=== PATIENT | male | born 1930 | race Caucasian/White ===

== ENCOUNTER 2018-07-21 19:13 | Inpatient (IN) | payer MEDICARE, OTHER ==
[~2018-07-21] VITALS: Ht 160 cm; Wt 73.5 kg
[2018-07-21] VITALS (13 sets, daily range): BP systolic 80–102; BP diastolic 13–54; PULSE 88–98; RESP 22–33; Ht 160 cm; Wt 73.5 kg
[2018-07-21] MEDS ORDERED: VANCOMYCIN IV PER PHARMACY XX SCH (22:30)
[2018-07-21] MEDS ORDERED: ACETAMINOPHEN 650MG/20.3ML CUP GTB PRN (22:30)
[2018-07-21] MEDS ORDERED: NACL 3% FOR INHALATION 15 ML NEBU NEB ONE (22:30)
[2018-07-21] MEDS: SOD CHLORIDE 0.9% 1,000 ML IV SCH (23:12)
[2018-07-22] VITALS (83 sets, daily range): BP systolic 52–192; BP diastolic 18–107; PULSE 0–163; RESP 18–40
[2018-07-22] MEDS ORDERED: PHENYLephrine 40 MG in DEXTROSE 5% 246 ML IV SCH ×2
[2018-07-22] MEDS ORDERED: NORepinephrine 8MG/250 ML (PMX 250 ML IV SCH
[2018-07-22] MEDS ORDERED: GLUCAGON 1 MG INJ IM PRN (00:30)
[2018-07-22] MEDS ORDERED: DEXTROSE 50% 50 ML SYRINGE IV PRN ×2 (00:30)
[2018-07-22] MEDS ORDERED: GLUCOSE GEL 15 GRAM TUBE BUCCAL PRN (00:30)
[2018-07-22] MEDS ORDERED: GLUCOSE GEL 15 GRAM TUBE PO PRN ×2 (00:30)
[2018-07-22] MEDS ORDERED: VANCOMYCIN HCL 1.5 GM in SOD CHLORIDE 0.9% 250 ML IVPB ONE (01:00)
[2018-07-22] MEDS: INSULIN ASPART [NOVOLOG] 3 ML PEN SC SCH ×3 (06:00→17:43)
[2018-07-22] MEDS ORDERED: SOD CHLORIDE 0.9% 500 ML IV ONE (06:00)
[2018-07-22] MEDS: ERYTHROMYCIN BASE (DR) 250 MG CAP PO SCH ×4 (06:00→16:04)
[2018-07-22] MEDS ORDERED: FAMOTIDINE 20 MG TAB NGT SCH (09:00)
[2018-07-22] MEDS ORDERED: BALSAM PERU/CASTOR OIL 60 GM TUBE TOP SCH (09:00)
[2018-07-22] MEDS ORDERED: GLYCOPYRROLATE 1 MG TAB PEG SCH (09:00)
[2018-07-22] MEDS ORDERED: POLYETHYLENE GLYCOL 17 GM PACKET GTB SCH (09:00)
[2018-07-22] MEDS: CARBIDOPA/LEVODOPA (25/100) TAB PEG SCH ×3 (09:00→16:04)
[2018-07-22] MEDS ORDERED: NORepinephrine 32 MG in DEXTROSE 5% 218 ML IV SCH (09:00)
[2018-07-22] MEDS ORDERED: ATORVASTATIN 20 MG TAB GTB SCH (09:00)
[2018-07-22] MEDS ORDERED: CEFEPIME 1GM/50 ML (PMX) 50 ML IVPB SCH (09:00)
[2018-07-22] MEDS ORDERED: predniSONE 20 MG TAB GTB SCH (09:00)
[2018-07-22] MEDS ORDERED: METOPROLOL 25 MG TAB GTB SCH (09:00)
[2018-07-22] MEDS: PHENYLephrine 80 MG in DEXTROSE 5% 242 ML IV SCH ×2 (09:53→16:01)
[2018-07-22] MEDS: CHLORHEXIDINE GLUCONATE 15 ML UD CUP MT SCH ×2 (10:07→12:48)
--- NOTE | 2018-07-22 10:37 | CONS ---
Assessment/Plan Cardiology NYHA: IV Heart Failure Type: Acute on Chronic Assessment/Plan Assessment/Plan (Daily) Assessment: 1) Septic shock 2) AFIb w RVR likely in context of comorbidities 3) CAD 4) CABG 5) Chronic respiratory failure 6) CRI 7) Moderate aortic valve stenosis Plan: Continue current two pressors Ventilator dc beta leonardo poor prognosis Consultation Date/Type/Reason Admit Date/Time Jul 21, 2018 at 20:29 Initial Consult Date Type of Consult Cardiology Date/Time of Note DATE: 07/22/18 TIME: 10:31 24 HR Interval Summary Free Text/Dictation in ICU, agonal breathing, cyanotic, on pressors, hypotensive Subjective hx not possible: pt non-verbal, pt critical Exam/Review of Systems Vital Signs Vitals Vital Signs Date Temp Pulse Resp B/P (MAP) Pulse Ox O2 O2 Flow FiO2 Time Delivery Rate 07/22/18 163 09:39 07/22/18 34 78/36 (50) 93 08:15 07/22/18 97.2 Trach 10.0 08:00 Collar 07/22/18 98 07:38 Intake and Output 07/21/18 07/21/18 07/22/18 1515:00 23:00 07:00 IntakeIntake Total 602.49 ml OutputOutput Total 2800 ml BalanceBalance -2197.51 ml Exam Constitutional: non-verbal, distress Head: normocephalic, atraumatic ENMT: other (trach) Neck: jvd Respiratory: diminished breath sounds Cardiovascular: irregular rhythm Gastrointestinal: soft Musculoskeletal: muscle weakness Extremities: cyanosis Labs Result Diagram: 07/22/18 0451 07/22/18 0451 Results 24hrs Laboratory Tests Test 07/22/18 01:30 07/22/18 02:26 07/22/18 04:51 07/22/18 06:10 Urine Color FIDEL Urine Clarity TURBID A Urine pH 5.0 Urine Specific 1.020 [place] Urine Ketones TRACE A Urine Nitrite NEGATIVE Urine Bilirubin NEGATIVE Urine Urobilinogen NEGATIVE Urine Leukocyte NEGATIVE Esterase Urine Microscopic 181 H RBC Urine Microscopic 47 H WBC Urine Squamous FEW Epithelial Cells Urine Bacteria FEW A Urine Mucus FEW A Urine Hemoglobin 3+ H Urine Glucose NEGATIVE Urine Total 2+ H Protein Blood Gas Specimen Blood arterial Source Arterial Blood 07/22/2018 3:05:20 Date Drawn AM Arterial Blood pH 7.340 L (Temp corrected) Arterial Blood 38.4 pCO2 (Temp correct) Arterial Blood pO2 73.0 L (Temp corrected) Arterial Blood 20.3 L HCO3 Arterial Blood -5.0 L Base Excess Arterial Blood 91.8 L Oxygen Saturation Cricket Test N/A Arterial Blood Gas Right Brachial Puncture Site Arterial 0.3 Blood Carboxyhemog lobin Arterial Blood 0.3 Methemoglobin Blood Gas A-a O2 529.3 H Differential Oxyhemoglobin 91.2 L Percent Blood Gas 37.0 Temperature Blood Gas Actual 32 Respiration Rate Blood Gas Modality TRACH COLLAR FiO2 90.0 Blood Gas Notified MG Whom Blood Gas Notified 07/22/2018 3:17:33 Time AM White Blood Count 24.2 #H Red Blood Count 3.38 L Hemoglobin 9.3 L Hematocrit 30.3 L Mean Corpuscular 89.6 Volume Mean Corpuscular 27.5 L Hemoglobin Mean Corpuscular 30.7 L Hemoglobin Concent Red Cell 16.4 H Distribution Width Platelet Count 384 Mean Platelet 10.2 Volume Immature 5.800 H Granulocytes % Neutrophils % Segmented 51 Neutrophils % (Manual) Band Neutrophils % 40 H (Manual) Lymphocytes % 2 L (Manual) Monocytes % 4 (Manual) Eosinophils % Metamyelocytes % 3 H (manual) Nucleated Red 0.0 Blood Cells % Immature 1.410 H Granulocytes # Neutrophils # Neutrophils # 14.7 H (Manual) Band Neutrophils # 9.6 H Lymphocytes 0.4 L (Manual) Monocytes # 0.9 (Manual) Eosinophils # Metamyelocytes # 0.7 H Dohle Bodies 1+ Platelet Estimate NORMAL Polychromasia 1+ Poikilocytosis 2+ Anisocytosis 1+ Ovalocytes 1+ Sodium Level 134 L Potassium Level 4.3 Chloride Level 97 Carbon Dioxide 23 Level Anion Gap 14 H Blood Urea 129 H Nitrogen Creatinine 2.42 H Est Glomerular Filtrat Rate mL/min Glucose Level 70 # Calcium Level 7.5 L Total Bilirubin 0.1 L Direct Bilirubin 0.00 Indirect Bilirubin 0.1 Aspartate Amino 126 H Transf (AST/SGOT) Alanine 29 Aminotransferase ( ALT/SGPT) Alkaline 112 Phosphatase Total Protein 5.9 L Albumin 2.4 L Globulin 3.50 H Albumin/Globulin 0.68 Ratio Bedside Glucose 65 L Test 07/22/18 07:06 Bedside Glucose 99 Medications Medications Current Medications Acetaminophen (Tylenol Liquid) 650 mg Q4H PRN GTB MILD PAIN(1-3)OR ELEVATED TEMP; Start 07/21/18 at 22:30 Atorvastatin Calcium (Lipitor) 20 mg DAILY GTB ; Start 07/22/18 at 09:00 Cefepime HCl 50 ml @ 100 mls/hr Q12 IVPB Last administered on 07/22/18at 10:06; Admin Dose 100 MLS/HR; Start 07/22/18 at 09:00 Chlorhexidine Gluconate (Peridex) 15 ml TID MT Last administered on 07/22/18at 10:07; Admin Dose 15 ML; Start 07/22/18 at 09:00 Erythromycin (Erythromycin) 250 mg Q6 PO ; Start 07/22/18 at 00:00 Simethicone (Mylicon) 80 mg TID GTB ; Start 07/22/18 at 09:00 Vancomycin HCl (Vanco Iv Per Pharmacy) VANCOMYCIN PER PHARMACY PER PROTOCOL XX ; Start 07/21/18 at 22:30 Sodium Chloride 1,000 ml @ 70 mls/hr [id number] IV Last administered on 07/21/18at 23:12; Admin Dose 70 MLS/HR; Start 07/21/18 at 22:30 Famotidine (Pepcid) 20 mg DAILY NGT ; Start 07/22/18 at 09:00 Glycopyrrolate (Robinul) 1 mg BID PEG ; Start 07/22/18 at 09:00 Carbidopa/Levodopa (Sinemet (25/ 100)) 1 tab QID PEG ; Start 07/22/18 at 09:00 Metoprolol Tartrate (Lopressor) 25 mg BID GTB ; Start 07/22/18 at 09:00 Polyethylene Glycol (Miralax) 17 gm DAILY GTB ; Start 07/22/18 at 09:00 Prednisone (Prednisone) 20 mg BID GTB ; Start 07/22/18 at 09:00; Stop 07/25/18 at 21:00 Insulin Aspart (Novolog Insulin Pen) NOVOLOG *MILD* ALGORI... Q6 SC ; Start 07/22/18 at 06:00 Miscellaneous Information 1 ea NOTE XX ; Start 07/22/18 at 00:30 Glucose (Glutose) 15 gm Q15M PRN PO DECREASED GLUCOSE; Start 07/22/18 at 00:30 Glucose (Glutose) 22.5 gm Q15M PRN PO DECREASED GLUCOSE; Start 07/22/18 at 00:30 Dextrose (D50w Syringe) 25 ml Q15M PRN IV DECREASED GLUCOSE Last administered on 07/22/18at 06:23; Admin Dose 25 ML; Start 07/22/18 at 00:30 Dextrose (D50w Syringe) 50 ml Q15M PRN IV DECREASED GLUCOSE; Start 07/22/18 at 00:30 Glucagon (Glucagen) 1 mg Q15M PRN IM DECREASED GLUCOSE; Start 07/22/18 at 00:30 Glucose (Glutose) 15 gm Q15M PRN BUCCAL DECREASED GLUCOSE; Start 07/22/18 at 00:30 Norepinephrine 32 mg/Dextrose 250 ml @ 0.47 mls/hr TITRATE IV Last administered on 07/22/18at 10:26; Admin Dose 4.69 MLS/HR; Start 07/22/18 at 09:00 Phenylephrine HCl 80 mg/Dextrose 250 ml @ 18.75 mls/ hr TITRATE IV Last administered on 07/22/18at 09:53; Admin Dose 30 MLS/HR; Start 07/22/18 at 09:00 LUDMILA RADER MD Jul 22, 2018 10:37
--- NOTE | 2018-07-22 11:07 | CONS ---
Assessment/Plan Assessment/Plan Assessment/Plan (Daily) IMP: 1. Refractory Septic Shock 2/2 mesenteric ischemia with evidence of mesenteric and portal venous gas 2. Chronic Resp Failure--s/p trach 3. Chronic Encephalopathy 4. LARON on CKD 5. Bowel ischemia 6. Multifocal pneumonia 7. s/p CVA 8. s/p hemicolectomy RECS: 1. IVF's with LR--> needs more fluids 2. Follow lactate clearance 3. Broad spectrum abx 4. Patient poor candidate for surgical intervention 5. Vasopressors to MAP > 65 mm Hg 6. Hydrocortisone 50 mg IV Q 6 7. Needs central access 8. Agree with chemical code--would strongly consider transition to comfort measures given overall poor prognosis. Consultation Date/Type/Reason Admit Date/Time Jul 21, 2018 at 20:29 Date of Consultation: Jul 22, 2018 Type of Consult Pulm/CCM Date/Time of Note DATE: 07/22/18 TIME: 10:55 Hx of Present Illness Briefly, this is an 87-year-old man with a history of CAD, HTN, HL, DM, CABG, PD , s/p recent prolonged hospitalization starting in early May 2018 where he was admitted to [facility] with a CVA and AMS. His course was complicated by ischemic colitis, s/p hemicolectomy and colostomy, respiratory failure s/p trach and vent dependence as well as renal failure requiring HD. He was subsequently sent to [place] for further management. Overnight, he was transferred to the ICU for severe septic shock requiring pressors, found to have ischemic bowel on CT as evidenced by pneumatosis and mesenteric and portal venous gas. Subjective hx not possible: pt non-verbal Past Medical History Medical History: congestive heart failure, coronary artery disease, diabetes, hypertension, renal disease Medications Current Medications Acetaminophen (Tylenol Liquid) 650 mg Q4H PRN GTB MILD PAIN(1-3)OR ELEVATED TEMP; Start 07/21/18 at 22:30 Atorvastatin Calcium (Lipitor) 20 mg DAILY GTB ; Start 07/22/18 at 09:00 Chlorhexidine Gluconate (Peridex) 15 ml TID MT Last administered on 07/22/18at 10:07; Admin Dose 15 ML; Start 07/22/18 at 09:00 Erythromycin (Erythromycin) 250 mg Q6 PO ; Start 07/22/18 at 00:00 Simethicone (Mylicon) 80 mg TID GTB ; Start 07/22/18 at 09:00 Vancomycin HCl (Vanco Iv Per Pharmacy) VANCOMYCIN PER PHARMACY PER PROTOCOL XX ; Start 07/21/18 at 22:30 Sodium Chloride 1,000 ml @ 70 mls/hr [id number] IV Last administered on 07/21/18at 23:12; Admin Dose 70 MLS/HR; Start 07/21/18 at 22:30 Famotidine (Pepcid) 20 mg DAILY NGT ; Start 07/22/18 at 09:00 Glycopyrrolate (Robinul) 1 mg BID PEG ; Start 07/22/18 at 09:00 Carbidopa/Levodopa (Sinemet (25/ 100)) 1 tab QID PEG ; Start 07/22/18 at 09:00 Polyethylene Glycol (Miralax) 17 gm DAILY GTB ; Start 07/22/18 at 09:00 Prednisone (Prednisone) 20 mg BID GTB ; Start 07/22/18 at 09:00; Stop 07/25/18 at 21:00 Insulin Aspart (Novolog Insulin Pen) NOVOLOG *MILD* ALGORI... Q6 SC ; Start 07/22/18 at 06:00 Miscellaneous Information 1 ea NOTE XX ; Start 07/22/18 at 00:30 Glucose (Glutose) 15 gm Q15M PRN PO DECREASED GLUCOSE; Start 07/22/18 at 00:30 Glucose (Glutose) 22.5 gm Q15M PRN PO DECREASED GLUCOSE; Start 07/22/18 at 00:30 Dextrose (D50w Syringe) 25 ml Q15M PRN IV DECREASED GLUCOSE Last administered on 07/22/18at 06:23; Admin Dose 25 ML; Start 07/22/18 at 00:30 Dextrose (D50w Syringe) 50 ml Q15M PRN IV DECREASED GLUCOSE; Start 07/22/18 at 00:30 Glucagon (Glucagen) 1 mg Q15M PRN IM DECREASED GLUCOSE; Start 07/22/18 at 00:30 Glucose (Glutose) 15 gm Q15M PRN BUCCAL DECREASED GLUCOSE; Start 07/22/18 at 00:30 Norepinephrine 32 mg/Dextrose 250 ml @ 0.47 mls/hr TITRATE IV Last administered on 07/22/18at 10:26; Admin Dose 4.69 MLS/HR; Start 07/22/18 at 09:00 Phenylephrine HCl 80 mg/Dextrose 250 ml @ 18.75 mls/ hr TITRATE IV Last administered on 07/22/18at 09:53; Admin Dose 30 MLS/HR; Start 07/22/18 at 09:00 Cefepime HCl 50 ml @ 100 mls/hr DAILY IVPB ; Start 07/23/18 at 09:00 Allergies: Coded Allergies: Penicillins (Unverified Allergy, Unknown, 06/22/18) diphenhydramine (Verified Allergy, Unknown, 06/22/18) Past Surgical History Past Surgical Hx: coronary bypass surgery Family History Significant Family History: no pertinent family hx Social History Alcohol Use: none Drug Use: none Exam/Review of Systems Exam Vitals Vital Signs Date Temp Pulse Resp B/P (MAP) Pulse Ox O2 O2 Flow FiO2 Time Delivery Rate 07/22/18 100 10:30 07/22/18 163 09:39 07/22/18 34 78/36 (50) 93 08:15 07/22/18 97.2 Trach 10.0 08:00 Collar Intake and Output 07/21/18 07/21/18 07/22/18 1515:00 23:00 07:00 IntakeIntake Total 602.49 ml OutputOutput Total 2800 ml BalanceBalance -2197.51 ml Constitutional: non-verbal Head: normocephalic, atraumatic Eyes: nl conjunctiva ENMT: nl external ears & nose, nl lips & teeth Neck: supple, non-tender Respiratory: crackles/rales, labored breathing Cardiovascular: irregular rhythm, systolic murmur Gastrointestinal: distended, firm Musculoskeletal: nl extremities to inspection Extremities: normal pulses Neurological: lethargic Results Result Diagram: 07/22/18 0451 07/22/18 0451 Results 24hrs Laboratory Tests Test 07/22/18 01:30 07/22/18 02:26 07/22/18 04:51 07/22/18 06:10 Urine Color FIDEL Urine Clarity TURBID A Urine pH 5.0 Urine Specific 1.020 [place] Urine Ketones TRACE A Urine Nitrite NEGATIVE Urine Bilirubin NEGATIVE Urine Urobilinogen NEGATIVE Urine Leukocyte NEGATIVE Esterase Urine Microscopic 181 H RBC Urine Microscopic 47 H WBC Urine Squamous FEW Epithelial Cells Urine Bacteria FEW A Urine Mucus FEW A Urine Hemoglobin 3+ H Urine Glucose NEGATIVE Urine Total 2+ H Protein Blood Gas Specimen Blood arterial Source Arterial Blood 07/22/2018 3:05:20 Date Drawn AM Arterial Blood pH 7.340 L (Temp corrected) Arterial Blood 38.4 pCO2 (Temp correct) Arterial Blood pO2 73.0 L (Temp corrected) Arterial Blood 20.3 L HCO3 Arterial Blood -5.0 L Base Excess Arterial Blood 91.8 L Oxygen Saturation Cricket Test N/A Arterial Blood Gas Right Brachial Puncture Site Arterial 0.3 Blood Carboxyhemog lobin Arterial Blood 0.3 Methemoglobin Blood Gas A-a O2 529.3 H Differential Oxyhemoglobin 91.2 L Percent Blood Gas 37.0 Temperature Blood Gas Actual 32 Respiration Rate Blood Gas Modality TRACH COLLAR FiO2 90.0 Blood Gas Notified MG Whom Blood Gas Notified 07/22/2018 3:17:33 Time AM White Blood Count 24.2 #H Red Blood Count 3.38 L Hemoglobin 9.3 L Hematocrit 30.3 L Mean Corpuscular 89.6 Volume Mean Corpuscular 27.5 L Hemoglobin Mean Corpuscular 30.7 L Hemoglobin Concent Red Cell 16.4 H Distribution Width Platelet Count 384 Mean Platelet 10.2 Volume Immature 5.800 H Granulocytes % Neutrophils % Segmented 51 Neutrophils % (Manual) Band Neutrophils % 40 H (Manual) Lymphocytes % 2 L (Manual) Monocytes % 4 (Manual) Eosinophils % Metamyelocytes % 3 H (manual) Nucleated Red 0.0 Blood Cells % Immature 1.410 H Granulocytes # Neutrophils # Neutrophils # 14.7 H (Manual) Band Neutrophils # 9.6 H Lymphocytes 0.4 L (Manual) Monocytes # 0.9 (Manual) Eosinophils # Metamyelocytes # 0.7 H Dohle Bodies 1+ Platelet Estimate NORMAL Polychromasia 1+ Poikilocytosis 2+ Anisocytosis 1+ Ovalocytes 1+ Sodium Level 134 L Potassium Level 4.3 Chloride Level 97 Carbon Dioxide 23 Level Anion Gap 14 H Blood Urea 129 H Nitrogen Creatinine 2.42 H Est Glomerular Filtrat Rate mL/min Glucose Level 70 # Calcium Level 7.5 L Total Bilirubin 0.1 L Direct Bilirubin 0.00 Indirect Bilirubin 0.1 Aspartate Amino 126 H Transf (AST/SGOT) Alanine 29 Aminotransferase ( ALT/SGPT) Alkaline 112 Phosphatase Total Protein 5.9 L Albumin 2.4 L Globulin 3.50 H Albumin/Globulin 0.68 Ratio Bedside Glucose 65 L Test 07/22/18 07:06 Bedside Glucose 99 Medications Medication Current Medications Acetaminophen (Tylenol Liquid) 650 mg Q4H PRN GTB MILD PAIN(1-3)OR ELEVATED TEMP; Start 07/21/18 at 22:30 Atorvastatin Calcium (Lipitor) 20 mg DAILY GTB ; Start 07/22/18 at 09:00 Chlorhexidine Gluconate (Peridex) 15 ml TID MT Last administered on 07/22/18at 10:07; Admin Dose 15 ML; Start 07/22/18 at 09:00 Erythromycin (Erythromycin) 250 mg Q6 PO ; Start 07/22/18 at 00:00 Simethicone (Mylicon) 80 mg TID GTB ; Start 07/22/18 at 09:00 Vancomycin HCl (Vanco Iv Per Pharmacy) VANCOMYCIN PER PHARMACY PER PROTOCOL XX ; Start 07/21/18 at 22:30 Sodium Chloride 1,000 ml @ 70 mls/hr [id number] IV Last administered on 07/21/18at 23:12; Admin Dose 70 MLS/HR; Start 07/21/18 at 22:30 Famotidine (Pepcid) 20 mg DAILY NGT ; Start 07/22/18 at 09:00 Glycopyrrolate (Robinul) 1 mg BID PEG ; Start 07/22/18 at 09:00 Carbidopa/Levodopa (Sinemet (25/ 100)) 1 tab QID PEG ; Start 07/22/18 at 09:00 Polyethylene Glycol (Miralax) 17 gm DAILY GTB ; Start 07/22/18 at 09:00 Prednisone (Prednisone) 20 mg BID GTB ; Start 07/22/18 at 09:00; Stop 07/25/18 at 21:00 Insulin Aspart (Novolog Insulin Pen) NOVOLOG *MILD* ALGORI... Q6 SC ; Start 07/22/18 at 06:00 Miscellaneous Information 1 ea NOTE XX ; Start 07/22/18 at 00:30 Glucose (Glutose) 15 gm Q15M PRN PO DECREASED GLUCOSE; Start 07/22/18 at 00:30 Glucose (Glutose) 22.5 gm Q15M PRN PO DECREASED GLUCOSE; Start 07/22/18 at 00:30 Dextrose (D50w Syringe) 25 ml Q15M PRN IV DECREASED GLUCOSE Last administered on 07/22/18at 06:23; Admin Dose 25 ML; Start 07/22/18 at 00:30 Dextrose (D50w Syringe) 50 ml Q15M PRN IV DECREASED GLUCOSE; Start 07/22/18 at 00:30 Glucagon (Glucagen) 1 mg Q15M PRN IM DECREASED GLUCOSE; Start 07/22/18 at 00:30 Glucose (Glutose) 15 gm Q15M PRN BUCCAL DECREASED GLUCOSE; Start 07/22/18 at 00:30 Norepinephrine 32 mg/Dextrose 250 ml @ 0.47 mls/hr TITRATE IV Last administered on 07/22/18at 10:26; Admin Dose 4.69 MLS/HR; Start 07/22/18 at 09:00 Phenylephrine HCl 80 mg/Dextrose 250 ml @ 18.75 mls/ hr TITRATE IV Last administered on 07/22/18at 09:53; Admin Dose 30 MLS/HR; Start 07/22/18 at 09:00 Cefepime HCl 50 ml @ 100 mls/hr DAILY IVPB ; Start 07/23/18 at 09:00 ANGELA SHEETS MD Jul 22, 2018 11:07
[2018-07-22] MEDS ORDERED: LACTATED RINGER'S 1,000 ML IV ONE (11:30)
--- NOTE | 2018-07-22 11:32 | PRO ---
Date/Time of Note Date/Time of Note DATE: 07/22/18 TIME: 11:30 Femoral CV Placement PROCEDURE NOTE PROCEDURE: right subclavian central venous catheter insertion INDICATION: Need for intravenous access due to septic shock PROCEDURE INTERNET PROGRAMMER: Du CONSENT: Consent was implied due to the emergent nature of the procedure. PROCEDURE SUMMARY: The patient was prepped and draped in the usual sterile manner. 1% lidocaine was used to numb the region. The finder needle was used to locate the right subc lavian vein. A triple lumen 8.5 [place] 20 cm catheter was inserted using the Seldinger technique and the guidewire was removed. All ports aspirate and flushed without difficulty. The patient tolerated the procedure well without any immediate complications. The line was sutured into place and the area was cleaned and Tegaderm applied. ESTIMATED BLOOD LOSS: 1-2 ml ANGELA SHEEST MD Jul 22, 2018 11:32
[2018-07-22] MEDS: LACTATED RINGER'S 1,000 ML IV SCH ×2 (11:40→17:44)
--- NOTE | 2018-07-22 11:42 | HP ---
Date/Time of Note Date/Time of Note DATE: 07/22/18 TIME: 11:39 Assessment/Plan VTE Prophylaxis Pharmacological prophylaxis: LMWH Lines/Catheters IV Catheter Type (from Nrsg): Central Line Central line still needed: Yes Urinary Cath still in place: Yes Reason Cath still needed: skin wounds contaminated by urine Assessment/Plan Hospital Course 1) bowel ischemia - consult surgery - poor candidate for surgical intervention 2) respiratory failure - on ventilator 3) code status - patient is chemical code only at this point Result Diagram: 07/22/18 0451 07/22/18 0451 Results 24hrs Laboratory Tests Test 07/22/18 01:30 07/22/18 02:26 07/22/18 04:51 07/22/18 06:10 Urine Color FIDEL Urine Clarity TURBID A Urine pH 5.0 Urine Specific 1.020 [place] Urine Ketones TRACE A Urine Nitrite NEGATIVE Urine Bilirubin NEGATIVE Urine Urobilinogen NEGATIVE Urine Leukocyte NEGATIVE Esterase Urine Microscopic 181 H RBC Urine Microscopic 47 H WBC Urine Squamous FEW Epithelial Cells Urine Bacteria FEW A Urine Mucus FEW A Urine Hemoglobin 3+ H Urine Glucose NEGATIVE Urine Total 2+ H Protein Blood Gas Specimen Blood arterial Source Arterial Blood 07/22/2018 3:05:20 Date Drawn AM Arterial Blood pH 7.340 L (Temp corrected) Arterial Blood 38.4 pCO2 (Temp correct) Arterial Blood pO2 73.0 L (Temp corrected) Arterial Blood 20.3 L HCO3 Arterial Blood -5.0 L Base Excess Arterial Blood 91.8 L Oxygen Saturation Cricket Test N/A Arterial Blood Gas Right Brachial Puncture Site Arterial 0.3 Blood Carboxyhemog lobin Arterial Blood 0.3 Methemoglobin Blood Gas A-a O2 529.3 H Differential Oxyhemoglobin 91.2 L Percent Blood Gas 37.0 Temperature Blood Gas Actual 32 Respiration Rate Blood Gas Modality TRACH COLLAR FiO2 90.0 Blood Gas Notified MG Whom Blood Gas Notified 07/22/2018 3:17:33 Time AM White Blood Count 24.2 #H Red Blood Count 3.38 L Hemoglobin 9.3 L Hematocrit 30.3 L Mean Corpuscular 89.6 Volume Mean Corpuscular 27.5 L Hemoglobin Mean Corpuscular 30.7 L Hemoglobin Concent Red Cell 16.4 H Distribution Width Platelet Count 384 Mean Platelet 10.2 Volume Immature 5.800 H Granulocytes % Neutrophils % Segmented 51 Neutrophils % (Manual) Band Neutrophils % 40 H (Manual) Lymphocytes % 2 L (Manual) Monocytes % 4 (Manual) Eosinophils % Metamyelocytes % 3 H (manual) Nucleated Red 0.0 Blood Cells % Immature 1.410 H Granulocytes # Neutrophils # Neutrophils # 14.7 H (Manual) Band Neutrophils # 9.6 H Lymphocytes 0.4 L (Manual) Monocytes # 0.9 (Manual) Eosinophils # Metamyelocytes # 0.7 H Dohle Bodies 1+ Platelet Estimate NORMAL Polychromasia 1+ Poikilocytosis 2+ Anisocytosis 1+ Ovalocytes 1+ Sodium Level 134 L Potassium Level 4.3 Chloride Level 97 Carbon Dioxide 23 Level Anion Gap 14 H Blood Urea 129 H Nitrogen Creatinine 2.42 H Est Glomerular Filtrat Rate mL/min Glucose Level 70 # Calcium Level 7.5 L Total Bilirubin 0.1 L Direct Bilirubin 0.00 Indirect Bilirubin 0.1 Aspartate Amino 126 H Transf (AST/SGOT) Alanine 29 Aminotransferase ( ALT/SGPT) Alkaline 112 Phosphatase Total Protein 5.9 L Albumin 2.4 L Globulin 3.50 H Albumin/Globulin 0.68 Ratio Bedside Glucose 65 L Test 07/22/18 07:06 Bedside Glucose 99 HPI/ROS Admit Date/Time Admit Date/Time Jul 21, 2018 at 20:29 Hx of Present Illness Patient with hypertension, coronary artery disease, diabetes mellitus, respiratory failure is a patient that was previously treated for bowel ischemia was at [facility] for respiratory care when he decompensated with evidence of sepsis and so needed to be transferred to ICU for further care. PMH/Family/Social Past Medical History Medical History: congestive heart failure, coronary artery disease, diabetes, hypertension, renal disease Medications Current Medications Acetaminophen (Tylenol Liquid) 650 mg Q4H PRN GTB MILD PAIN(1-3)OR ELEVATED TEMP; Start 07/21/18 at 22:30 Atorvastatin Calcium (Lipitor) 20 mg DAILY GTB ; Start 07/22/18 at 09:00 Chlorhexidine Gluconate (Peridex) 15 ml TID MT Last administered on 07/22/18at 10:07; Admin Dose 15 ML; Start 07/22/18 at 09:00 Erythromycin (Erythromycin) 250 mg Q6 PO ; Start 07/22/18 at 00:00 Simethicone (Mylicon) 80 mg TID GTB ; Start 07/22/18 at 09:00 Vancomycin HCl (Vanco Iv Per Pharmacy) VANCOMYCIN PER PHARMACY PER PROTOCOL XX ; Start 07/21/18 at 22:30 Sodium Chloride 1,000 ml @ 70 mls/hr [id number] IV Last administered on 07/21/18at 23:12; Admin Dose 70 MLS/HR; Start 07/21/18 at 22:30 Famotidine (Pepcid) 20 mg DAILY NGT ; Start 07/22/18 at 09:00 Glycopyrrolate (Robinul) 1 mg BID PEG ; Start 07/22/18 at 09:00 Carbidopa/Levodopa (Sinemet (25/ 100)) 1 tab QID PEG ; Start 07/22/18 at 09:00 Polyethylene Glycol (Miralax) 17 gm DAILY GTB ; Start 07/22/18 at 09:00 Prednisone (Prednisone) 20 mg BID GTB ; Start 07/22/18 at 09:00; Stop 07/25/18 at 21:00; Status Hold Insulin Aspart (Novolog Insulin Pen) NOVOLOG *MILD* ALGORI... Q6 SC ; Start 07/22/18 at 06:00 Miscellaneous Information 1 ea NOTE XX ; Start 07/22/18 at 00:30 Glucose (Glutose) 15 gm Q15M PRN PO DECREASED GLUCOSE; Start 07/22/18 at 00:30 Glucose (Glutose) 22.5 gm Q15M PRN PO DECREASED GLUCOSE; Start 07/22/18 at 00:30 Dextrose (D50w Syringe) 25 ml Q15M PRN IV DECREASED GLUCOSE Last administered on 07/22/18at 06:23; Admin Dose 25 ML; Start 07/22/18 at 00:30 Dextrose (D50w Syringe) 50 ml Q15M PRN IV DECREASED GLUCOSE; Start 07/22/18 at 00:30 Glucagon (Glucagen) 1 mg Q15M PRN IM DECREASED GLUCOSE; Start 07/22/18 at 00:30 Glucose (Glutose) 15 gm Q15M PRN BUCCAL DECREASED GLUCOSE; Start 07/22/18 at 00:30 Norepinephrine 32 mg/Dextrose 250 ml @ 0.47 mls/hr TITRATE IV Last administered on 07/22/18at 10:26; Admin Dose 4.69 MLS/HR; Start 07/22/18 at 09:00 Phenylephrine HCl 80 mg/Dextrose 250 ml @ 18.75 mls/ hr TITRATE IV Last administered on 07/22/18at 09:53; Admin Dose 30 MLS/HR; Start 07/22/18 at 09:00 Cefepime HCl 50 ml @ 100 mls/hr DAILY IVPB ; Start 07/23/18 at 09:00 Lactated Ringer's 1,000 ml @ 1,000 mls/hr Q1H ONCE IV ; Start 07/22/18 at 11:30; Stop 07/22/18 at 12:29 Hydrocortisone (Solu-Cortef) 100 mg Q8 IV ; Start 07/22/18 at 14:00 Lactated Ringer's 1,000 ml @ 150 mls/hr Q6H40M IV ; Start 07/22/18 at 11:30 Coded Allergies: Penicillins (Unverified Allergy, Unknown, 06/22/18) diphenhydramine (Verified Allergy, Unknown, 06/22/18) Past Surgical History Past Surgical Hx: coronary bypass surgery Family History Significant Family History: no pertinent family hx Social History Alcohol Use: none Drug Use: none Exam/Review of Systems Vital Signs Vitals Vital Signs Date Temp Pulse Resp B/P (MAP) Pulse Ox O2 O2 Flow FiO2 Time Delivery Rate 07/22/18 116 25 87 100 10:30 07/22/18 78/36 (50) 08:15 07/22/18 97.2 Trach 10.0 08:00 Collar Intake and Output 07/21/18 07/21/18 07/22/18 1515:00 23:00 07:00 IntakeIntake Total 602.49 ml OutputOutput Total 2800 ml BalanceBalance -2197.51 ml Exam Constitutional: well developed Head: normocephalic, atraumatic Neck: supple Respiratory: diminished breath sounds Cardiovascular: regular rate and rhythm Gastrointestinal: firm Extremities: normal pulses HEIDI GONZALES Jul 22, 2018 11:41
[2018-07-22] MEDS: SOD CHLORIDE 0.9% 1,000 ML IV SCH (12:01)
--- NOTE | 2018-07-22 12:04 | CONS ---
DATE OF ADMISSION: 07/21/2018 DATE OF CONSULTATION: 07/22/2018 HISTORY OF PRESENT ILLNESS: An 87-year-old gentleman with a history of coronary artery disease, atri al fibrillation, hypertension, diabetes mellitus, coronary artery bypass graft, renal failure, who wa s originally hospitalized at [place] where he developed acute stroke, placed on Plavix. He had alter ed level of mental status. Patient also found to have ischemic bowel requiring a resection of the co jennifer and colostomy. He had a good colostomy. At [place] patient required tracheostomy and PEG placem ent and subsequently transferred to [place] for further management. During his stay in [place] he was stable, but developed GI bleeding, so all of his blood thinners were stopped. Yesterday he developed mild abdominal distention, did not have a good bowel movement and patient became hypotensive. CT scan was obtained and multiple pneumotosis was found in the small bow el, a diagnosis of ischemic colon and ileus was entertained and patient was subsequently transferred to intensive care unit for further management. In the intensive care unit, the patient is on vent 10 0% oxygen. Blood pressure is low. He is on pressor support. PAST MEDICAL HISTORY: Diabetes mellitus, hypertension, renal disease, ischemic bowel, CHF, CVA. All his medication reviewed. PAST SURGICAL HISTORY: Coronary artery bypass graft. Colostomy, left hemicolectomy. SOCIAL HISTORY: Does not smoke or drink. REVIEW OF SYSTEMS: Unable to do it. PHYSICAL EXAMINATION: GENERAL: Patient is gasping for breath despite on vent and FIO2 of 100%. VITAL SIGNS: Blood pressure was 80/60, pulse rate was stable. LUNGS: On pressor support. ABDOMEN: Much softer than yesterday. Bowel sounds heard. NG tube was passed and 300 mL of fluid wa s aspirated. No signs of peritonitis. Colostomy was functional. EXTREMITIES: No edema. CENTRAL NERVOUS SYSTEM: The patient is not responsive. LABORATORY DATA: WBC is 24,000, hematocrit is 30. BUN is 129, creatinine is 2.42. SGOT was 126. A CT scan of the abdomen and pelvis showed diffuse small bowel pneumatosis with associated air in the mesentery and portal system consistent with ischemic bowel. The patient also had distention of the s tomach, esophagus and small bowel. IMPRESSION: 1. Ischemic bowel. 2. Leukocytosis secondary to #1. 3. Respiratory failure. 4. Septic shock. 5. Renal failure. 6. Cerebrovascular accident. 7. Atrial fibrillation. 8. Vent dependent respiratory failure. 9. Coronary artery bypass graft. PLAN: At this point, is to keep the patient n.p.o., NG tube to intermittent suction. Broad spectrum antibiotic and conservative measures. Will also get a surgical consult. I doubt patient is a surgi tina candidate. We will monitor WBC count closely. Dictated By: ASMITA RAMIREZ/HOLLIE Conf#: [id number] DID#: [id number] CC: SHAGGY PINZON MD;*EndCC*
--- NOTE | 2018-07-22 12:04 | CONS ---
Assessment/Plan Assessment/Plan Hospital Course (Demo Recall) Patient was transferred to ICU now on multiple pressors obtunded with large amount of output from NG tube around 3 L per report is in no distress afebrile with a heart rate ranging between 100 2235 bpm WBC 24.2 H&H 9.3 and 30.3 platelets 384 bands 40 BUN [address] of the abdomen and pelvis revealed bowel ischemia. Please see full report in the chart Indwelling: Trach PEG Right chest triple lumen catheter, Moore catheter and NG tube Antimicrobials: Vancomycin meropenem Allergy penicillin Physical examination: This is a wasted chronically ill-appearing elderly man who is in no distress. Head atraumatic normocephalic sclera nonicteric neck is supple tracheostomy present. Chest rise symmetrical breath sounds diminished at bases. Heart: S1-S2 irregular tachycardic abdomen distended bowel sounds hypoactive. Extremities mottled and cyanotic Assessment: 1. Septic shock with multisystem organ failure 2. Bowel ischemia 3. Healthcare associated pneumonia 4. Chronic respiratory failure and dysphagia 5. Acute on chronic kidney disease 6. Acute on chronic encephalopathy 7. History of hemicolectomy Plan: Patient is doing poorly, he is on appropriate antibiotics, will repeat cultures, follow gastroenterology pulmonary recommendations pending surgical eval Consultation Date/Type/Reason Admit Date/Time Jul 21, 2018 at 20:29 Initial Consult Date 07/22/18 Date/Time of Note DATE: 07/22/18 TIME: 12:03 Exam/Review of Systems Exam Vitals Vital Signs Date Temp Pulse Resp B/P (MAP) Pulse Ox O2 O2 Flow FiO2 Time Delivery Rate 07/22/18 116 25 87 100 10:30 07/22/18 78/36 (50) 08:15 07/22/18 97.2 Trach 10.0 08:00 Collar Intake and Output 07/21/18 07/21/18 07/22/18 1515:00 23:00 07:00 IntakeIntake Total 602.49 ml OutputOutput Total 2800 ml BalanceBalance -2197.51 ml Results Result Diagram: 07/22/18 0451 07/22/18 0451 Results 24hrs Laboratory Tests Test 07/22/18 01:30 07/22/18 02:26 07/22/18 04:51 07/22/18 06:10 Urine Color FIDEL Urine Clarity TURBID A Urine pH 5.0 Urine Specific 1.020 Fielding Urine Ketones TRACE A Urine Nitrite NEGATIVE Urine Bilirubin NEGATIVE Urine Urobilinogen NEGATIVE Urine Leukocyte NEGATIVE Esterase Urine Microscopic 181 H RBC Urine Microscopic 47 H WBC Urine Squamous FEW Epithelial Cells Urine Bacteria FEW A Urine Mucus FEW A Urine Hemoglobin 3+ H Urine Glucose NEGATIVE Urine Total 2+ H Protein Blood Gas Specimen Blood arterial Source Arterial Blood 07/22/2018 3:05:20 Date Drawn AM Arterial Blood pH 7.340 L (Temp corrected) Arterial Blood 38.4 pCO2 (Temp correct) Arterial Blood pO2 73.0 L (Temp corrected) Arterial Blood 20.3 L HCO3 Arterial Blood -5.0 L Base Excess Arterial Blood 91.8 L Oxygen Saturation Cricket Test N/A Arterial Blood Gas Right Brachial Puncture Site Arterial 0.3 Blood Carboxyhemog lobin Arterial Blood 0.3 Methemoglobin Blood Gas A-a O2 529.3 H Differential Oxyhemoglobin 91.2 L Percent Blood Gas 37.0 Temperature Blood Gas Actual 32 Respiration Rate Blood Gas Modality TRACH COLLAR FiO2 90.0 Blood Gas Notified MG Whom Blood Gas Notified 07/22/2018 3:17:33 Time AM White Blood Count 24.2 #H Red Blood Count 3.38 L Hemoglobin 9.3 L Hematocrit 30.3 L Mean Corpuscular 89.6 Volume Mean Corpuscular 27.5 L Hemoglobin Mean Corpuscular 30.7 L Hemoglobin Concent Red Cell 16.4 H Distribution Width Platelet Count 384 Mean Platelet 10.2 Volume Immature 5.800 H Granulocytes % Neutrophils % Segmented 51 Neutrophils % (Manual) Band Neutrophils % 40 H (Manual) Lymphocytes % 2 L (Manual) Monocytes % 4 (Manual) Eosinophils % Metamyelocytes % 3 H (manual) Nucleated Red 0.0 Blood Cells % Immature 1.410 H Granulocytes # Neutrophils # Neutrophils # 14.7 H (Manual) Band Neutrophils # 9.6 H Lymphocytes 0.4 L (Manual) Monocytes # 0.9 (Manual) Eosinophils # Metamyelocytes # 0.7 H Dohle Bodies 1+ Platelet Estimate NORMAL Polychromasia 1+ Poikilocytosis 2+ Anisocytosis 1+ Ovalocytes 1+ Sodium Level 134 L Potassium Level 4.3 Chloride Level 97 Carbon Dioxide 23 Level Anion Gap 14 H Blood Urea 129 H Nitrogen Creatinine 2.42 H Est Glomerular Filtrat Rate mL/min Glucose Level 70 # Calcium Level 7.5 L Total Bilirubin 0.1 L Direct Bilirubin 0.00 Indirect Bilirubin 0.1 Aspartate Amino 126 H Transf (AST/SGOT) Alanine 29 Aminotransferase ( ALT/SGPT) Alkaline 112 Phosphatase Total Protein 5.9 L Albumin 2.4 L Globulin 3.50 H Albumin/Globulin 0.68 Ratio Bedside Glucose 65 L Test 07/22/18 07:06 Bedside Glucose 99 Medications Medication Current Medications Acetaminophen (Tylenol Liquid) 650 mg Q4H PRN GTB MILD PAIN(1-3)OR ELEVATED TEMP; Start 07/21/18 at 22:30 Atorvastatin Calcium (Lipitor) 20 mg DAILY GTB ; Start 07/22/18 at 09:00 Chlorhexidine Gluconate (Peridex) 15 ml TID MT Last administered on 07/22/18at 10:07; Admin Dose 15 ML; Start 07/22/18 at 09:00 Erythromycin (Erythromycin) 250 mg Q6 PO ; Start 07/22/18 at 00:00 Simethicone (Mylicon) 80 mg TID GTB ; Start 07/22/18 at 09:00 Vancomycin HCl (Vanco Iv Per Pharmacy) VANCOMYCIN PER PHARMACY PER PROTOCOL XX ; Start 07/21/18 at 22:30 Sodium Chloride 1,000 ml @ 70 mls/hr [id number] IV Last administered on 07/21/18at 23:12; Admin Dose 70 MLS/HR; Start 07/21/18 at 22:30 Famotidine (Pepcid) 20 mg DAILY NGT ; Start 07/22/18 at 09:00 Glycopyrrolate (Robinul) 1 mg BID PEG ; Start 07/22/18 at 09:00 Carbidopa/Levodopa (Sinemet (25/ 100)) 1 tab QID PEG ; Start 07/22/18 at 09:00 Polyethylene Glycol (Miralax) 17 gm DAILY GTB ; Start 07/22/18 at 09:00 Prednisone (Prednisone) 20 mg BID GTB ; Start 07/22/18 at 09:00; Stop 07/25/18 at 21:00; Status Hold Insulin Aspart (Novolog Insulin Pen) NOVOLOG *MILD* ALGORI... Q6 SC ; Start 07/22/18 at 06:00 Miscellaneous Information 1 ea NOTE XX ; Start 07/22/18 at 00:30 Glucose (Glutose) 15 gm Q15M PRN PO DECREASED GLUCOSE; Start 07/22/18 at 00:30 Glucose (Glutose) 22.5 gm Q15M PRN PO DECREASED GLUCOSE; Start 07/22/18 at 00:30 Dextrose (D50w Syringe) 25 ml Q15M PRN IV DECREASED GLUCOSE Last administered on 07/22/18at 06:23; Admin Dose 25 ML; Start 07/22/18 at 00:30 Dextrose (D50w Syringe) 50 ml Q15M PRN IV DECREASED GLUCOSE; Start 07/22/18 at 00:30 Glucagon (Glucagen) 1 mg Q15M PRN IM DECREASED GLUCOSE; Start 07/22/18 at 00:30 Glucose (Glutose) 15 gm Q15M PRN BUCCAL DECREASED GLUCOSE; Start 07/22/18 at 00:30 Norepinephrine 32 mg/Dextrose 250 ml @ 0.47 mls/hr TITRATE IV Last administered on 07/22/18at 10:26; Admin Dose 4.69 MLS/HR; Start 07/22/18 at 09:00 Phenylephrine HCl 80 mg/Dextrose 250 ml @ 18.75 mls/ hr TITRATE IV Last administered on 07/22/18at 09:53; Admin Dose 30 MLS/HR; Start 07/22/18 at 09:00 Cefepime HCl 50 ml @ 100 mls/hr DAILY IVPB ; Start 07/23/18 at 09:00 Lactated Ringer's 1,000 ml @ 1,000 mls/hr Q1H ONCE IV Last administered on 07/22/18at 11:40; Admin Dose 1,000 MLS/HR; Start 07/22/18 at 11:30; Stop 07/22/18 at 12:29 Hydrocortisone (Solu-Cortef) 100 mg Q8 IV ; Start 07/22/18 at 14:00 Lactated Ringer's 1,000 ml @ 150 mls/hr Q6H40M IV Last administered on 07/22/18at 11:40; Admin Dose 150 MLS/HR; Start 07/22/18 at 11:30 MINA JOHNSON NP Jul 22, 2018 12:04
[2018-07-22] MEDS ORDERED: MEROPENEM 1 GM/50ML(PMX) 50 ML IVPB SCH (13:00)
--- NOTE | 2018-07-22 13:28 | PRO ---
Date/Time of Note Date/Time of Note DATE: 07/22/18 TIME: 13:25 Femoral CV Placement PROCEDURE NOTE PROCEDURE: Subclavian central venous catheter INDICATION: Need for intravenous access due to septic shock PROCEDURE ORANGE GROWER: Du CONSENT: Consent was implied due to the emergent nature of the procedure. PROCEDURE SUMMARY: The initial catheter placed coursed from the right subclavian vein into innominate and up in to the IJ. I tried to reposition this using a guidewire and pulling out and cutting the catheter, however, this did not work. Therefore, I proceeded with replacement of the line. The patient was prepped and draped in the usual sterile manner. 1% lidocaine was used to numb the region. A triple 8.5 Finnish 20 cm catheter was inserted using the Seldinger technique. All ports aspirate and flushed without difficulty. The patient tolerated the procedure well without any immediate complications. The line was sutured into place and the area was cleaned and Tegaderm applied. ESTIMATED BLOOD LOSS: < 1 ml CXR shows catheter in good position in the SVC. ANGELA SHEETS MD Jul 22, 2018 13:28
[2018-07-22] MEDS ORDERED: HYDROCORTISONE 100 MG INJ IV SCH (14:00)
--- NOTE | 2018-07-22 19:42 | QN ---
Documentation Comment I was called that the patient went into asystole. I examined the patient. Pupils were fixed and nonreactive. Ventilator was paused. He had no audible heart or lung sounds. No palpable carotid pulse. Asystole on telemetry. Time of : 19:35. ZOË EWING MD Jul 22, 2018 19:42
[2018-07-23] MEDS ORDERED: CEFEPIME 2GM/50 ML IVPB SCH (09:00)
--- NOTE | 2018-07-23 11:24 | DES ---
Date/Time of Note Date/Time of Note DATE: 07/23/18 TIME: 11:21 Discharge/ Summary Admission/Discharge Info Admit Date/Time Jul 21, 2018 at 20:29 Date/Time 09/21/18 19:35 Final Diagnosis 1) bowel ischemia - consult surgery - poor candidate for surgical intervention 2) respiratory failure - on ventilator 3) code status - patient is chemical code only at this point Preliminary Cause of sepsis secondary to bowel ischemia Admit History Patient with hypertension, coronary artery disease, diabetes mellitus, respiratory failure is a patient that was previously treated for bowel ischemia was at [facility] for respiratory care when he decompensated with evidence of sepsis and so needed to be transferred to ICU for further care. Hospital Course Patient was admitted to ICU for sepsis. CT scan of abdomen shows bowel perforation most likely secondary to bowel ischemia. Patient was treated but despite treatment, patient had a code blue event. He managed to recover but because of the episode, the family decided to change the patient to complete DNR and so the patient subsequently . 1) bowel ischemia - consult surgery - poor candidate for surgical intervention 2) respiratory failure - on ventilator 3) code status - patient is chemical code only at this point Pending Labs/Cultures Laboratory Tests Test 07/22/18 12:08 07/22/18 17:39 07/22/18 18:13 07/22/18 18:35 Bedside 81 31 147 41 Glucose mg/dL (70-220) mg/dL (70-220) mg/dL (70-220) mg/dL (70-220) Test 07/22/18 18:50 Bedside 100 Glucose mg/dL (70-220) HEIDI GONZALES Jul 23, 2018 11:24
[2018-07-24] MEDS ORDERED: VANCOMYCIN 1 GM 250 ML IVPB SCH (01:00)
== END 2018-07-22 19:35 | disposition expired | DRG 871 ==
LOC: ICU 20:29
PROVIDERS: ADMIT Internal Medicine; ATTEND Internal Medicine
PROC: 05H533Z Insertion of Infusion Device into Right Subclavian Vein, Percutaneous Approach (ICD-10-PCS; principal; 2018-07-22)
PROC: 5A1935Z Respiratory Ventilation, Less than 24 Consecutive Hours (ICD-10-PCS; 2018-07-22)
DX: A41.9 Sepsis, unspecified organism (principal); R65.21 Severe sepsis with septic shock; J18.9 Pneumonia, unspecified organism; J96.00 Acute respiratory failure, unspecified whether with hypoxia or hypercapnia; K55.9 Vascular disorder of intestine, unspecified; J96.10 Chronic respiratory failure, unspecified whether with hypoxia or hypercapnia; G93.40 Encephalopathy, unspecified; E11.9 Type 2 diabetes mellitus without complications; Z95.1 Presence of aortocoronary bypass graft; R13.10 Dysphagia, unspecified; I12.9 Hypertensive chronic kidney disease with stage 1 through stage 4 chronic kidney disease, or unspecified chronic kidney disease; N18.9 Chronic kidney disease, unspecified; I48.91 Unspecified atrial fibrillation; Z86.73 Personal history of transient ischemic attack (TIA), and cerebral infarction without residual deficits; Z66 Do not resuscitate
CPT/HCPCS: 36600; 71045; 74176; 80053; 81001; 82803; 82962; 85025; 87070; 87081; 87086; 89220; 94002; J0692; J1720; J1815; J2185; J3370; J7030; J7040; J7050; J7070; J7120